=== PATIENT | female | born 1940 | race Caucasian/White ===

== ENCOUNTER 2018-08-08 21:06 | Emergency (ER) | payer MEDICARE, BC ==
[~2018-08-08] VITALS: Ht 154.9 cm; Wt 80.7 kg
[2018-08-08] MEDS ORDERED: DONE10TA11 PO (21:23)
[2018-08-08] MEDS ORDERED: PANT40TA2 PO (21:23)
[2018-08-08] MEDS ORDERED: GABA-532 PO (21:23)
[2018-08-08] MEDS ORDERED: CHOL500062 PO (21:23)
[2018-08-08] MEDS ORDERED: CETI-102 PO (21:23)
[2018-08-08] MEDS ORDERED: METO-356 PO (21:23)
[2018-08-08] MEDS ORDERED: MEMA10TA PO (21:23)
[2018-08-08] MEDS ORDERED: IPRATROPIUM 0.06% SPRAY (21:23)
[2018-08-08] MEDS ORDERED: ASPI81TA31 PO (21:23)
[2018-08-08] MEDS ORDERED: ATOR40TA PO (21:23)
[2018-08-08] MEDS ORDERED: CITA20TA19 PO (21:23)
[2018-08-08] MEDS ORDERED: ALPR0.25 PO (21:23)
[2018-08-08] MEDS ORDERED: OLME20TA13 PO (21:23)
[2018-08-08] MEDS ORDERED: MULT-225 PO (21:24)
[2018-08-08] MEDS ORDERED: UBID100C13 PO (21:24)
--- NOTE | 2018-08-08 21:35 | NUR ---
Earle smith in [facility] - 08/08/18 at 2159 by NICO MARILU nobles.
[2018-08-08] MEDS ORDERED: ALPRAZOLAM 0.25 MG TABLET ONE (22:11)
[2018-08-08] MEDS ORDERED: ALPRAZOLAM 0.25 MG TABLET PO ONE (22:15)
[2018-08-08 22:16] LABS: *BILIRUBIN,URIN NEGATIVE (NEGATIVE); *BLOOD, URINE NEGATIVE (NEGATIVE); *CLARITY,URINE SLIGHTLY CLOUDY (CLEAR); *COLOR,URINE YELLOW (YELLOW); *KETONES,URINE NEGATIVE (NEGATIVE); *UROBILINOGEN,URINE 0.2 E.U./dl (NORMAL); LEUKOCYTE ESTERASE ,URINE 3+ (NEGATIVE); NITRITE, URINE NEGATIVE (NEGATIVE); UGLUCOSE NEGATIVE (NEGATIVE)
--- NOTE | 2018-08-08 22:26 | NUR ---
Patient ambulated to bathroom 2x, NAD, for results and disposition
[2018-08-08 22:30] LABS: BACTERIA,URINE FEW /HPF (NONE SEEN); RBC,URINE 0-3 /HPF (0-3); SQUAMOUS EPITHELIAL CELL,UR FEW /HPF (NONE SEEN); WBC,URINE 20-50 /HPF (0-3)
--- NOTE | 2018-08-08 22:42 | NUR ---
Patient discharged to home in stable conditon. Written and verbal after care instructions given to patient and family. Patient and family verbalized understanding of instructions.
== END 2018-08-08 22:44 | disposition home or self-care (01) ==
LOC: ER 21:06
DX: I10 Essential (primary) hypertension (principal); K21.9 Gastro-esophageal reflux disease without esophagitis; Z90.710 Acquired absence of both cervix and uterus; Z95.0 Presence of cardiac pacemaker; Z79.899 Other long term (current) drug therapy
CPT/HCPCS: 93005; A4663